=== PATIENT | female | born 1980 | race Caucasian/White ===

== ENCOUNTER 2021-02-16 14:51 | Observation (INO) ==
[2021-02-16 19:35] LABS: Appearance Urine Clear (Clear); Basophils # (auto) 0.02 K/uL (0-0.2); Basophils % (auto) 0.2 %; Bilirubin Urine Negative (Negative); Blood Urine Negative (Negative); Color Urine Dark Yellow; Eosinophils # (auto) 0.04 K/uL (0-0.5); Eosinophils % (auto) 0.4 %; Glucose Urine UA Negative (Negative); Hematocrit (blood only) 43.3 % (37-47); Hemoglobin 15.1 g/dL (12.0-16.0); Immature Granulocytes # (auto) 0.02 K/uL (0.00-0.02); Immature Granulocytes % (auto) 0.2 %; Ketones Urine 2+ (Negative); Leukocyte Esterase Urine Negative (Negative); Lymphocytes # (auto) 1.89 K/uL (1.2-3.4); Lymphocytes % (auto) 17.4 %; Mean Corpuscular Hemoglobin 31.7 pg (25-34); Mean Corpuscular Hgb Conc 34.9 g/dL (32-36); Mean Corpuscular Volume 90.8 fL (80-100); Mean Platelet Volume 10.8 fL (7.4-10.4); Monocytes # (auto) 0.51 K/uL (0.11-0.59); Monocytes % (auto) 4.7 %; Neutrophils # (auto) 8.39 K/uL (1.4-6.5); Neutrophils % (auto) 77.1 %; Nitrite Urine Negative (Negative); Platelet Count 243 K/uL (130-400); Protein Urine Negative (Negative); RDW Coefficient of Variation 12.5 % (11.5-14.5); RDW Standard Deviation 42.3 fL (36.4-46.3); Red Blood Count 4.77 M/uL (4.2-5.4); Specific Gravity Urine 1.022 (1.000-1.030); Urobilinogen Urine Negative (Negative); White Blood Count 10.87 K/uL (4.8-10.8); pH Urine 5.5 (4.5-7.5)
[2021-02-16 19:52] LABS: Albumin Level 4.2 gm/dl (3.4-5.0); BUN Creatinine Ratio 14.6 (10-20); Calcium 9.3 mg/dl (8.5-10.1); Creatinine Clr Calc Pharmacy 84.7 ml/min; Est GFR (African American) 112.7 ml/min; Est GFR (Non-African American) 97.3 ml/min; Potassium 3.3 mmol/L (3.5-5.1)
[2021-02-16 19:55] LABS: Bilirubin,Total 0.8 mg/dl (0.2-1); Globulin 4.4 gm/dl (2.5-4.0); Total Protein 8.6 gm/dl (6.4-8.2)
[2021-02-16] MEDS ORDERED: SODIUM CHLORIDE 0.9% 1000ML 1,000 ML IV ONE (20:08)
--- NOTE | 2021-02-16 20:11 | Emergency Department Note ---
Impression & Plan Acute appendicitis, Abdominal pain ED Provider Note NAME: CATALINO VAZQUEZ AGE: 40 SEX: F : 1980 ARRIVES VIA: Walk-In INFORMANT: Patient ED PROVIDER(S): Miles Vargas DO CHIEF COMPLAINT: Right lower quadrant abdominal pain HPI: Patient is a 39-year-old female who presents to the ER for right lower quadrant abdominal pain. This started last night. She notes it is worse with movement as well as twisting, turning, and bending. Last menstrual period was around the 18th. Patient denies any headache or change in vision. No chest pain or shortness of breath. Pain with movement is a 5 out of 10. At rest it improved significantly. Denies any dysuria, urgency, or frequency. No vaginal bleeding or vaginal discharge. She was seen by PCP and referred in for possible appendicitis. Does have a history of cholecystectomy. ROS: See above HPI for pertinent positives & negatives. A total of 10 systems reviewed and were otherwise negative. PAST MEDICAL HISTORY:See Below PAST SURGICAL HISTORY:See Below FAMILY HISTORY:See Below SOCIAL HISTORY:See Below HOME MEDICATIONS:See Below ALLERGIES:See Below VITALS:See Below PHYSICAL EXAMINATION: GENERAL: Sitting up in bed, alert, well appearing, well nourished, no distress, non-toxic EYE EXAM: normal conjunctiva. OROPHARYNX: no exudate, no erythema, lips, buccal mucosa, and tongue normal and mucous membranes are moist NECK: supple, no nuchal rigidity, no adenopathy, non-tender LUNGS: Clear to auscultation. Normal chest wall mechanics HEART: no murmurs, S1 normal and S2 normal ABDOMEN: abdomen soft, tender palpation right lower quadrant, normo-active bowel sounds, no masses, no rebound or guarding. UPPER EXTREMITIES: upper extremities are grossly normal. LOWER EXTREMITIES: No pitting edema. NEURO EXAM: Normal sensorium, cranial nerves II-XII grossly intact, normal speech, no gross weakness of arms, no gross weakness of legs. MEDICAL DECISION MAKING: Patient is a 40-year-old female who presents ER for abdominal pain and right lower quadrant. On exam she is tender. IV was established taken. Labs showed a significant leukocytosis. BMP with mild hypokalemia. LFTs bilirubin and lipase was unremarkable. UA was clean. Covid was negative. CT abdomen pelvis shows appendicitis. Patient was given cefoxitin. They are updated bedside. Declined pain medications. Discussed with general surgeon taken to the OR. Triage Nursing notes reviewed. Limited review of prior medical records performed Vital Signs: reviewed and remarkable for HTN Differential diagnosis: Differential diagnoses includes but is not limited to gastritis, peptic ulcer disease, GERD, gallbladder disease, pancreatitis, small bowel obstruction, acute coronary syndrome, pericarditis, ischemic bowel, irritable bowel disease, irritable bowel syndrome, appendicitis, diverticulitis, malignancy, hernia, urinary tract infection, torsion, /ectopic (if female), perforation, trauma, infectious. ER treatment provided: See below Diagnostics interpreted by me: ECG: none Cardiac Monitoring: An order was placed for continuous cardiac monitoring. The monitor shows a rate of 92 with sinus rhythm. Laboratory studies: As stated above and show below. Imaging studies: CT abdomen pelvis shows acute appendicitis Consultation(s): Discussed with Dr. Barker from general surgery who evaluate the patient took him to the OR Procedures: none Critical Care: None Past Med/Surg History Social History Smoking Status: Never smoker Preferred Language: Telugu Feels Safe at Home: Yes Allergies Allergies Allergy/AdvReac Type Severity Reaction Status Date / Time Penicillins Allergy Intermediate Rash Verified 02/16/21 20:21 Home Meds Home Medications Medication Instructions Recorded Confirmed No Known Home Medications 02/16/21 02/16/21 Results & Data (ED) Vital Signs Vital Signs - 24 hr 02/16/21 15:15 02/16/21 21:00 02/16/21 21:36 Temperature 36.7 C Temperature Source Temporal Artery Scan Pulse Rate 98 H 84 Pulse Rate [Finger] 81 Pulse Rhythm [Finger] Regular Pulse Strength [Finger] Normal Respiratory Rate 20 18 18 Respiratory Effort / Characteristics Non-Labored Spontaneous Non-Labored Respiratory Depth Normal Normal Respiratory Pattern Regular Regular Blood Pressure 157/93 H 125/77 Blood Pressure [Right Arm] 141/79 H Blood Pressure Mean 114 93 Blood Pressure Mean [Right Arm] 99 Blood Pressure Position [Right Arm] Sitting Pulse Oximetry 99 100 99 Oxygen Delivery Method Room Air Room Air Room Air Sepsis Recent Fever Within 48 Hours No Sepsis New/Unexplained Change in Mental Status No Sepsis Action Taken by Nursing No Action Required 02/16/21 22:33 02/16/21 22:38 Temperature Temperature Source Pulse Rate Pulse Rate [Finger] 84 Pulse Rhythm [Finger] Pulse Strength [Finger] Respiratory Rate 18 Respiratory Effort / Characteristics Non-Labored Respiratory Depth Normal Respiratory Pattern Blood Pressure Blood Pressure [Right Arm] 126/83 Blood Pressure Mean Blood Pressure Mean [Right Arm] 97 Blood Pressure Position [Right Arm] Pulse Oximetry 98 Oxygen Delivery Method Room Air Room Air Sepsis Recent Fever Within 48 Hours Sepsis New/Unexplained Change in Mental Status Sepsis Action Taken by Nursing Laboratory Data Result diagrams: 02/16/21 19:22 02/16/21 19:22 Lab Results 02/16/21 02/16/21 02/16/21 Range/Units 19:22 19: 19:22 WBC 10.87 H (4.8-10.8) K/uL RBC 4.77 (4.2-5.4) M/uL Hgb 15.1 (12.0-16.0) g/dL Hct 43.3 (37-47) % MCV 90.8 (80-100) fL MCH 31.7 (25-34) pg MCHC 34.9 (32-36) g/dL RDW Std Deviation 42.3 (36.4-46.3) fL RDW Coeff of Alana 12.5 (11.5-14.5) % Plt Count 243 (130-400) K/uL MPV 10.8 H (7.4-10.4) fL Immature Gran % (Auto) 0.2 % Neut % (Auto) 77.1 % Lymph % (Auto) 17.4 % [place] % (Auto) 4.7 % Eos % (Auto) 0.4 % Baso % (Auto) 0.2 % Neut # (Auto) 8.39 H (1.4-6.5) K/uL Lymph # (Auto) 1.89 (1.2-3.4) K/uL [place] # (Auto) 0.51 (0.11-0.59) K/uL Eos # (Auto) 0.04 (0-0.5) K/uL Baso # (Auto) 0.02 (0-0.2) K/uL Immature Gran # (Auto) 0.02 (0.00-0.02) K/uL Sodium 138 (136-145) mmol/L Potassium 3.3 L (3.5-5.1) mmol/L Chloride 107 (98-107) mmol/L Carbon Dioxide 25 (21-32) mmol/L Anion Gap 6.0 (3-11) BUN 11 (7-18) mg/dl Creatinine 0.77 (0.6-1.2) mg/dl Est Cr Clr Drug Dosing 84.7 ml/min Est GFR ( Amer) 112.7 ml/min Est GFR (Non-Af Amer) 97.3 ml/min BUN/Creatinine Ratio 14.6 (10-20) Glucose 94 (70-99) mg/dl Calcium 9.3 (8.5-10.1) mg/dl Total Bilirubin 0.8 (0.2-1) mg/dl AST 13 L (15-37) U/L ALT 20 (12-78) U/L Alkaline Phosphatase 76 (45-117) U/L Total Protein 8.6 H (6.4-8.2) gm/dl Albumin 4.2 (3.4-5.0) gm/dl Globulin 4.4 H (2.5-4.0) gm/dl Albumin/Globulin Ratio 1.0 (0.9-2) Lipase 94 (73-393) U/L Urine Color Dark Yellow Urine Appearance Clear (Clear) Urine pH 5.5 (4.5-7.5) Ur Specific [place] 1.022 (1.000-1.030) Urine Protein Negative (Negative) Urine Glucose (UA) Negative (Negative) Urine Ketones 2+ H (Negative) Urine Blood Negative (Negative) Urine Nitrite Negative (Negative) Urine Bilirubin Negative (Negative) Urine Urobilinogen Negative (Negative) Ur Leukocyte Esterase Negative (Negative) POC Ur Test (NEG) COVID-19 Eval Order SARS-CoV-2 (PCR) (Negative) 02/16/21 02/16/21 02/16/21 Range/Units 19:30 21:35 21:35 WBC (4.8-10.8) K/uL RBC (4.2-5.4) M/uL Hgb (12.0-16.0) g/dL Hct (37-47) % MCV (80-100) fL MCH (25-34) pg MCHC (32-36) g/dL RDW Std Deviation (36.4-46.3) fL RDW Coeff of Alana (11.5-14.5) % Plt Count (130-400) K/uL MPV (7.4-10.4) fL Immature Gran % (Auto) % Neut % (Auto) % Lymph % (Auto) % [place] % (Auto) % Eos % (Auto) % Baso % (Auto) % Neut # (Auto) (1.4-6.5) K/uL Lymph # (Auto) (1.2-3.4) K/uL [place] # (Auto) (0.11-0.59) K/uL Eos # (Auto) (0-0.5) K/uL Baso # (Auto) (0-0.2) K/uL Immature Gran # (Auto) (0.00-0.02) K/uL Sodium (136-145) mmol/L Potassium (3.5-5.1) mmol/L Chloride (98-107) mmol/L Carbon Dioxide (21-32) mmol/L Anion Gap (3-11) BUN (7-18) mg/dl Creatinine (0.6-1.2) mg/dl Est Cr Clr Drug Dosing ml/min Est GFR ( Amer) ml/min Est GFR (Non-Af Amer) ml/min BUN/Creatinine Ratio (10-20) Glucose (70-99) mg/dl Calcium (8.5-10.1) mg/dl Total Bilirubin (0.2-1) mg/dl AST (15-37) U/L ALT (12-78) U/L Alkaline Phosphatase (45-117) U/L Total Protein (6.4-8.2) gm/dl Albumin (3.4-5.0) gm/dl Globulin (2.5-4.0) gm/dl Albumin/Globulin Ratio (0.9-2) Lipase (73-393) U/L Urine Color Urine Appearance (Clear) Urine pH (4.5-7.5) Ur Specific [place] (1.000-1.030) Urine Protein (Negative) Urine Glucose (UA) (Negative) Urine Ketones (Negative) Urine Blood (Negative) Urine Nitrite (Negative) Urine Bilirubin (Negative) Urine Urobilinogen (Negative) Ur Leukocyte Esterase (Negative) POC Ur Test NEG (NEG) COVID-19 Eval Order Covid19 at [facility] SARS-CoV-2 (PCR) NEGATIVE (Negative) Administered Medications Discontinued Medications Sodium Chloride (Nss 1000ml) 1,000 mls @ 999 mls/hr IV .Q1H1M ONE Stop: 02/16/21 21:08 Last Infusion: 02/16/21 22:04 Dose: 0 mls/hr Documented by: [id number] Admin: 02/16/21 21:04 Dose: 999 mls/hr Documented by: [id number] Cefoxitin Sodium (Mefoxin) 2,000 mg in 60 mls @ 100 mls/hr IV NOW STA Stop: 02/16/21 21:53 Last Infusion: 02/16/21 22:03 Dose: 0 mls/hr Documented by: [id number] Admin: 02/16/21 21:33 Dose: 100 mls/hr Documented by: [id number] Ioversol (Optiray 320 100ml) 94 ml IV ONCE ONE Stop: 02/16/21 20:49 Last Admin: 02/16/21 20:49 Dose: 94 ml Documented by: [id number] Imaging Data Radiologist's Impression: Abdomen/Pelvis CT 02/16/21 20:08 CT SCAN OF THE ABDOMEN AND PELVIS WITH IV CONTRAST CLINICAL HISTORY: Right lower quadrant abdominal pain. COMPARISON STUDY: No priors. TECHNIQUE: Following the IV administration of 94 cc of Optiray 320, CT scan of the abdomen and pelvis is performed from the lung bases to the proximal femora. Images are reviewed in the axial, sagittal, and coronal planes. IV contrast was administered without complication. A dose lowering technique was utilized adhering to the principles of ALARA. CT DOSE: 256.51 mGy.cm FINDINGS: Lung bases: The heart is normal in size and without pericardial effusion. The lung bases are clear. Liver: The contrast-enhanced liver is normal in size, contour, and attenuation. There is no intrahepatic biliary ductal dilatation. The hepatic veins and portal veins are patent. Gallbladder: Surgically absent noting clips in the gallbladder fossa. Spleen: Normal in size and attenuation. Pancreas: Unremarkable. Adrenal glands: Unremarkable. Kidneys: The contrast enhanced kidneys are normal in size and without hydronephrosis. The kidneys enhance symmetrically. Abdominal vasculature: The abdominal aorta is normal in course and caliber. Bowel: The small bowel and colon are normal in course and caliber. The appendix is is mildly distended and fluid-filled measuring up to 8 mm diameter. The appendiceal wall is mildly thickened and hyperemic, and there is periappendiceal inflammation. This is best seen on image #238 and findings are consistent with mild acute appendicitis. No organized fluid collection is seen to suggest abscess. Peritoneum: There is no intraperitoneal free air or abdominal ascites. There is a fat-containing umbilical hernia. Lymphadenopathy: None. Pelvic viscera: The bladder, uterus, and adnexa are normal as visualized noting bilateral ovarian follicles. Skeletal structures: No lytic or blastic lesions are seen. IMPRESSION: 1. Findings are consistent with mild acute appendicitis. 2. There is no evidence of abscess or perforation. ACT 112: Negative or not required by law. Electronically signed by: Oscar Paz M.D. 02/16/2021 9:17 PM Discharge Plan Visit Data Chief Complaint: Abdominal Pain Stated Complaint: RT LOWER ABD PAIN ED Provider: Miles Vargas Discharge Problem: Acute appendicitis, Abdominal pain Discharge Instructions Interventions: ED Discharge Assessment Last Done: 02/16/21 22:38 Forms Stand Alone Forms: [employer] Prescriptions Prescriptions: No Action No Known Home Medications RF: 0 Referrals Referrals: PCP,NO [Primary Care Provider] -
[2021-02-16] MEDS ORDERED: OPTIRAY 320 100ml IV ONE (20:48)
[2021-02-16] MEDS ORDERED: cefOXitin 2,000 MG/60 ML BAG IV STA (21:18)
--- NOTE | 2021-02-16 21:18 | CT Scan Report ---
CT SCAN OF THE ABDOMEN AND PELVIS WITH IV CONTRAST CLINICAL HISTORY: Right lower quadrant abdominal pain. COMPARISON STUDY: No priors. TECHNIQUE: Following the IV administration of 94 cc of Optiray 320, CT scan of the abdomen and pelvi s is performed from the lung bases to the proximal femora. Images are reviewed in the axial, sagittal , and coronal planes. IV contrast was administered without complication. A dose lowering technique wa s utilized adhering to the principles of ALARA. CT DOSE: 256.51 mGy.cm FINDINGS: Lung bases: The heart is normal in size and without pericardial effusion. The lung bases are clear. Liver: The contrast-enhanced liver is normal in size, contour, and attenuation. There is no intrahepa tic biliary ductal dilatation. The hepatic veins and portal veins are patent. Gallbladder: Surgically absent noting clips in the gallbladder fossa. Spleen: Normal in size and attenuation. Pancreas: Unremarkable. Adrenal glands: Unremarkable. Kidneys: The contrast enhanced kidneys are normal in size and without hydronephrosis. The kidneys enh ance symmetrically. Abdominal vasculature: The abdominal aorta is normal in course and caliber. Bowel: The small bowel and colon are normal in course and caliber. The appendix is is mildly distend ed and fluid-filled measuring up to 8 mm diameter. The appendiceal wall is mildly thickened and hyper emic, and there is periappendiceal inflammation. This is best seen on image #238 and findings are con sistent with mild acute appendicitis. No organized fluid collection is seen to suggest abscess. Peritoneum: There is no intraperitoneal free air or abdominal ascites. There is a fat-containing umbi lical hernia. Lymphadenopathy: None. Pelvic viscera: The bladder, uterus, and adnexa are normal as visualized noting bilateral ovarian fol licles. Skeletal structures: No lytic or blastic lesions are seen. IMPRESSION: 1. Findings are consistent with mild acute appendicitis. 2. There is no evidence of abscess or perforation. ACT 112: Negative or not required by law. Electronically signed by: Oscar Paz M.D. 02/16/2021 9:17 PM
--- NOTE | 2021-02-16 22:25 | History & Physical Report ---
Date of Service February 16, 2021 Assessment & Plan (1) Acute appendicitis: Plan: ct reviewed. clinically c/w ct findings of acute appendicitis. discussed options. discussed risks of surgery ( bleeding/infection/injury to another organ/dvt/pe/mi/cva etc...questions answered. will proceed with lap appendectomy. pt agreeable with plan. History of Present Illness Primary Care Provider: NO PCP 40 year old with abdominal pain x 24 hours. no localized to RLQ. +nausea. ct +acute appendicitis. Allergies Allergy/AdvReac Type Severity Reaction Status Date / Time Penicillins Allergy Intermediate Rash Verified 02/16/21 20:21 Home Medications Medication Instructions Recorded Confirmed Type No Known Home Medications 02/16/21 02/16/21 History Past Med/Surg History Social History Smoking Status: Never smoker Preferred Language: Pashto Feels Safe at Home: Yes Review of Systems All systems reviewed & are unremarkable except as noted in HPI & below Physical Exam Constitutional: WD/WN, vitals as above no acute distress and not ill appearing Eyes: PERRL, conjunctivae normal, anicteric sclerae EOM intact bilaterally ENMT: external ear and nose normal, oropharynx normal Ears: no hearing impairment Neck: trachea midline, no thyromegaly Respiratory: normal respiratory effort; no respiratory distress and does not use accessory muscles Cardiovascular: Rate/Rhythm: regular rate and regular rhythm Gastrointestinal (Abdomen): soft. +RLQ ttp. +rovsing Skin: no rashes, warm and dry Psychiatric: Orientation: alert, oriented x 3 and cooperative Results & Data ([facility]) Vital Signs (Past 12 Hours) Vital Signs Temp Pulse Pulse Resp BP BP Pulse Ox 02/16/21 21:36 84 18 125/77 99 02/16/21 21:00 81 18 141/79 H 100 02/16/21 15:15 36.7 C 98 H 20 157/93 H 99
[2021-02-16] MEDS ORDERED: PHENYLEPHRINE 100MCG/ML 5ML SYR IV PRN (22:39)
[2021-02-16] MEDS ORDERED: ePHEDrine sulfate 50 MG/ML AMP IV PRN (22:39)
[2021-02-16] MEDS ORDERED: LABETALOL HCL IV 5 MG/ML 20ML IV PRN (22:39)
[2021-02-16] MEDS ORDERED: ATROPINE SULFATE 0.1 MG/ML 10ML SYR IV PRN (22:39)
[2021-02-16] MEDS ORDERED: ONDANSETRON INJ 2 MG/ML 2 ML VIAL IV PRN (22:39)
[2021-02-16] MEDS ORDERED: HYDROmorphone INJ 1 MG/ML SYRINGE IV PRN (22:39)
[2021-02-16] MEDS ORDERED: fentaNYL citrate 100 MCG/2 ML VIAL IV PRN (22:39)
--- NOTE | 2021-02-16 22:42 | Anesthesiology Consultation ---
Date of Service February 16, 2021 Assessment & Plan (1) Encounter for pre-operative examination: Chart Review Chart Review: Acceptable Risk for Surgery and Patient NOT seen in Pre Admission Testing Consults Requested none History Surgery Operation Date: 02/16/21 23:00 Proposed Procedures p Laparoscopic Appendectomy - Michael Barker DO Height/Weight Height: 5 ft 4 in Weight: 61.1 kg Allergies Allergy/AdvReac Type Severity Reaction Status Date / Time Penicillins Allergy Intermediate Rash Verified 02/16/21 20:21 Medications Home Medications Medication Instructions Recorded Confirmed Last Taken No Known Home Medications 02/16/21 02/16/21 Unknown Social History Smoking Status: Never smoker Physical Exam Vital Signs Last Vital Signs Temp 36.7 C 02/16/21 15:15 Pulse 84 02/16/21 22:33 Resp 18 02/16/21 22:33 BP 126/83 02/16/21 22:33 Pulse Ox 98 02/16/21 22:33 Testing Laboratory Results 02/16/21 19:22 02/16/21 19:22 Urine Color Dark Yellow 02/16/21 19:22 Urine Appearance Clear (Clear) 02/16/21 19:22 Urine pH 5.5 (4.5-7.5) 02/16/21 19:22 Ur Specific [place] 1.022 (1.000-1.030) 02/16/21 19:22 Urine Protein Negative (Negative) 02/16/21 19:22 Urine Glucose (UA) Negative (Negative) 02/16/21 19:22 Urine Ketones 2+ (Negative) H 02/16/21 19:22 Urine Nitrite Negative (Negative) 02/16/21 19:22 Ur Leukocyte Esterase Negative (Negative) 02/16/21 19:22 02/16/21 19:30 POC Ur Test NEG
[2021-02-16] MEDS ORDERED: MIDAZOLAM HCL 1 MG/ML 2ML VIAL ONE (22:46)
[2021-02-16] MEDS ORDERED: fentaNYL citrate 100 MCG/2 ML VIAL ONE ×2 (22:47→23:44)
[2021-02-16] MEDS ORDERED: PROPOFOL IV EMULSION 10 MG/ML 20 ML VIAL IV ONE (22:50)
[2021-02-16] MEDS ORDERED: ONDANSETRON INJ 2 MG/ML 2 ML VIAL ONE (22:50)
[2021-02-16] MEDS ORDERED: LIDOCAINE 2% 2 ML VIAL/AMP(20MG/ML) INFIL ONE (22:50)
[2021-02-16] MEDS ORDERED: ROCURONIUM BROMIDE 10 MG/ML 5 ML VIAL IV ONE ×3 (22:50→23:08)
[2021-02-16] MEDS ORDERED: SUCCINYLCHOLINE 100MG/5ML SYR IV ONE (22:50)
[2021-02-16] MEDS ORDERED: GLYCOPYRROLATE 0.2 MG/ML VIAL ONE (22:50)
[2021-02-16] MEDS ORDERED: NEOSTIGMINE METHYLSULFATE 1 MG/ML 10ML VIAL ONE (22:50)
[2021-02-16] MEDS ORDERED: DEXAMETHASONE SOD INJ 4 MG/ML VIAL ONE (22:50)
[2021-02-16] MEDS ORDERED: EPINEPHrine INJ 1 MG/ML AMP ONE (22:54)
[2021-02-16] MEDS ORDERED: BUPIVACAINE 0.5 % 5 MG/1 ML MPF 30ML VIAL ONE (22:55)
[2021-02-16] MEDS ORDERED: KETOROLAC 30 MG/ML VIAL ONE (23:37)
--- NOTE | 2021-02-16 23:55 | Operative Report ---
PG Post Operative Report Pre & Post Diagnosis Operation Date: 02/16/21 23:00 Pre-Op Diagnosis: Acute Appendicitis Post-Op Diagnosis: Acute Appendicitis I identified the patient and participated in the time-out.: Yes Procedure Operation Date: 02/16/21 23:00 Actual Procedures p Laparoscopic Appendectomy(Not Applicable) - Michael Barker DO Surgeon Michael Barker DO Finish Rolls Operator n/a Estimated Blood Loss 5 Findings Consistent with Post-Op Diagnosis Specimens appendix Description of Procedure After informed consent was obtained the patient was taken to the operating room and placed in supine position. After successful intubation a Mejia catheter was placed and the left arm was tucked. A Mejia catheter was inserted sterilely. I began by making a periumbilical incision with an 11 blade scalpel and carried this down through the soft tissue using electrocautery. The anterior rectus fascia was opened using electrocautery and 2 #0 Vicryl stay sutures were placed. The peritoneum was elevated using hemostats and incised under direct vision using a Metzenbaum scissor. A finger sweep was performed. A 12 mm Arredondo troc ar was placed and the abdomen was insufflated to 18 mmHg. A laparoscope was inserted and the abdomen was examined in 360. A suprapubic 5 mm port and a left lower quadrant 12 mm port were placed under direct vision. The patient was air planed to the left as well as placed in a slight Trendelenburg position. We began by looking in the right lower quadrant. We were able to readily identify the appendix and it was grossly inflamed. It had not perforated. There is a small amount of purulent fluid in the right lower quadrant and the pelvis. We immediately irrigated and suctioned this out. I was able to use primarily blunt dissection to pull the appendix away from the right lower quadrant sidewall. After creating a window in the mesentery of the appendix, I was able to use 2 firings of a LUZ brown cartridge 60 mm stapler to transect both the mesentery of the appendix as well as the appendix itself at its base with the cecum. It was then placed into an Endo Catch bag and removed from the camera port site. We thoroughly irrigated the right lower quadrant as well as the pelvis. There was adequate hemostasis. I ran the small bowel backwards from the terminal ileum for about 6 feet all of which was normal. All the peritoneal surfaces were normal. Small/ large bowel, liver, stomach etc. all appeared grossly normal. We did a final irrigation and then removed all the trochars and desufflated the abdomen. The fascia of the camera port as well as the left lower quadrant were closed using 0 Vicryl in [id number] fashion. Wounds were all irrigated and closed using 4-0 Monocryl. Marcaine was injected around them for postoperative analgesia and skin glue used as a dressing. The patient was awakened extubated and transferred to recovery in stable condition. I attest to the content of the Intraoperative Record and any orders documented therein. Any exceptions are noted below.
[2021-02-16] MEDS ORDERED: MEPERIDINE HCL 25 MG/ML CARP/VIAL ONE (23:58)
[2021-02-17] MEDS: MEPERIDINE HCL 25 MG/ML CARP/VIAL IV PRN ×2 (00:05)
[2021-02-17] MEDS ORDERED: oxyCODONE HCL IR 5 MG TAB (IMMEDIATE RELEASE) PO PRN ×2 (00:54)
[2021-02-17] MEDS ORDERED: HYDROmorphone INJ 0.5 MG/0.5 ML SYR IV PRN ×2 (00:54)
--- NOTE | 2021-02-17 00:55 | Anesthesiology Progress Note ---
Date of Service February 17, 2021 Anesthesia Post Procedure Vital Signs Vital Signs: Temp Pulse Pulse Resp BP BP Pulse Ox 02/17/21 00:50 36.8 C 76 18 119/78 98 02/17/21 00:30 36.7 C 77 22 115/84 97 02/17/21 00:20 105 H 20 124/83 99 02/17/21 00:10 92 H 16 128/94 99 02/17/21 00:00 36.8 C 100 H 22 134/85 93 02/16/21 22:33 84 18 126/83 98 02/16/21 21:36 84 18 125/77 99 02/16/21 21:00 81 18 141/79 H 100 02/16/21 15:15 36.7 C 98 H 20 157/93 H 99 Transfer of Care Handoff Completed per policy Notes Mental Status: alert / awake / arousable Patient Amnestic to Procedure: Yes Nausea / Vomiting: adequately controlled Pain: adequately controlled Airway Patency, RR, SpO2: stable & adequate BP & HR: stable & adequate Hydration State: stable & adequate Anesthetic Complications: no major complications apparent and Pt Satisfied with anesthetic care
[2021-02-17] MEDS: LACTATED RINGER'S 1,000 ML IV SCH ×2 (01:36→06:36)
[2021-02-17] MEDS: ceFAZolin 1000MG 1,000 MG/7.5 ML SYR IV SCH ×2 (02:07→11:57)
[2021-02-17] MEDS: ACETAMINOPHEN 1,000 MG/100 ML VIAL IV SCH ×2 (02:07→10:56)
--- NOTE | 2021-02-17 10:34 | Surgery Progress Note ---
Date of Service February 17, 2021 Assessment & Plan (1) Acute appendicitis: Plan: POD 1 ok for discharge Admission and Anticipated Discharge Date Admission Date: February 16, 2021 Subjective tolerating diet, minimal pain Physical Exam Gastrointestinal (Abdomen): Inspection/Auscultation: + abdominal surgical incision (clean, dry); abdomen not distended Results & Data ([facility]) Vital Signs (Past 12 Hours) Vital Signs Temp Pulse Resp BP Pulse Ox 02/17/21 08:23 36.6 C 74 16 123/75 98 02/17/21 02:50 36.9 C 98 H 16 103/66 97 02/17/21 02:02 36.7 C 85 18 121/73 97 02/17/21 01:23 36.7 C 82 18 120/80 98 02/17/21 00:50 36.8 C 76 16 119/78 98 02/17/21 00:30 36.7 C 77 22 115/84 97 02/17/21 00:20 105 H 20 124/83 99 02/17/21 00:10 92 H 16 128/94 99 02/17/21 00:00 36.8 C 100 H 22 134/85 93 PG Care Time/CCT Total # of Minutes Spent Total Time Spent with Patient: Total time spent is greater than 50% in coordination of care (as documented) at patient's floor/unit and/or counseling patient: Coding Level of Care Code None Diagnoses Acute appendicitis K35.890 Acute appendicitis type: other (1) Acute appendicitis Acute appendicitis type: other Qualified Code(s): K35.890 - Other acute appendicitis without perforation or gangrene
--- NOTE | 2021-02-21 11:46 | Discharge Summary ---
Date of Service February 21, 2021 Principal Diagnosis Acute appendicitis Discharge Exam Gastrointestinal (Abdomen) Inspection/Auscultation: + abdominal surgical incision (dry); abdomen not distended Percussion/Palpation: abdomen soft Discharge Data Allergies Allergy/AdvReac Type Severity Reaction Status Date / Time Penicillins Allergy Intermediate Rash Verified 02/16/21 20:21 Consultations 02/16/21 21:18 ED Decision to Admit Stat Procedures Performed Operation Date: 02/16/21 23:00 Actual Procedures p Laparoscopic Appendectomy(Not Applicable) - Michael Barker DO Ordered Studies 02/16/21 20:08 CT abd pelvis IV con only Stat Hospital Course (1) Acute appendicitis: 40 y/o female presented to the ER with abdominal pain. White count was 10,[address] was consistent with acute appendicitis. She was taken to the operating room for laparoscopic appendectomy and transferred to the surgical floor for overnight observation. In the morning she was able to advance diet and tolerate oral analgesics. She was stable for discharge home. Total Time Total Time Spent Total Time Spent (In Minutes): 15 Discharge Plan Discharge Items Patient Disposition: Home - Self-Care Reason For Visit: APPENDICITIS Discharge Diagnosis: laparoscopic appendectomy Activity: As commented below Lifting: No more than 10 pounds Bathing Comment: ok to shower Driving/Machine Use: Resume 3 days after discharge Non-emergency contact: Surgeon Call non-emergency contact if: you have any medication questions, your symptoms worsen, your pain is not controlled, you have a fever, your temperature is above 101.5, your wound has increased redness, your wound has increased drainage and your wound pain has increased Follow-up/Referrals: Michael Barker DO [Family Provider] - 03/02/21 9:00 am (Call the office to make an appt in 2 weeks) PCP,NO [Primary Care Provider] - Diet: Regular Addtl Attending Provider Instructions: Pending Studies at Discharge: No Stand-Alone Forms: [employer], Opioid Pain Management, Work/School Release, Smoking Cessation Medications and DC Order Prescriptions: New hydrocodone-acetaminophen 5-325 mg tablet 1 - 2 tab PO .Q4-6h MDD 6 tabs PRN (Reason: pain, initial therapy) Qty: 15 RF: 0 Discharge Orders: Discharge Order (Routine); Ordered 02/17/21 Ordered By: George Mccoy/Other Patient Handouts: Appendectomy Laparoscopic Dc Admission Data Admit Date/Time: 02/16/21 23:59 Attending Provider: Michael Barker Admit Provider: Michael Barker Primary Care Provider: PCP,NO Other Providers: Michael Barker Other Interventions: Discharge Summary Assessment (RN) Last Done: 02/17/21 11:27 Coding Level of Care Code D/C DAY MANAGEMENT <30 MINS Diagnoses Acute appendicitis K35.890 Acute appendicitis type: other
== END 2021-02-17 12:24 | disposition home or self-care (01) ==
LOC: ED 14:51 → 3N 22:38 → OR 22:38
DX: Z88.0 Allergy status to penicillin; Z20.822 Contact with and (suspected) exposure to COVID-19; K35.80 Unspecified acute appendicitis